=== PATIENT | female | born 1965 | race Caucasian/White ===

== ENCOUNTER 2022-04-02 09:03 | Observation (INO) ==
--- NOTE | 2022-03-24 13:36 | Anesthesiology Consultation ---
Date of Service March 24, 2022 Assessment & Plan (1) Encounter for pre-operative examination: - check urine test STAT am DOS. - COVID screening: Per director of undergraduate admissions on 03/24/2022: Travel screen negative, no known COVID-19 positive contacts or current COVID-19 related symptoms in past 2 weeks. To surgeon's discretion if preop COVID testing needed. Chart Review Chart Review: Acceptable Risk for Surgery and Patient NOT seen in Pre Admission Testing History Surgery Operation Date: 04/02/22 10:50 Proposed Procedures p Bilateral Breast Reduction and Excision Skin Tag Left Axilla - Gabby Wu MD Height/Weight Height: 5 ft 4 in Weight: 66.224 kg Allergies Allergy/AdvReac Type Severity Reaction Status Date / Time No Known Allergies Allergy Verified 03/24/22 11:33 Medications Home Medications Medication Instructions Recorded Confirmed Last Taken baclofen 5 mg tablet 5 mg PO DAILY PRN Muscle Pain 03/18/22 03/24/22 Unknown gabapentin 100 mg capsule 100 mg PO TID 03/18/22 03/24/22 Unknown meloxicam 7.5 mg tablet (Mobic) 7.5 mg PO QAM 03/18/22 03/24/22 Unknown oxycodone-acetaminophen 5 mg-325 1 tab PO Q4H PRN pain #18 tabs 03/18/22 03/24/22 Unknown mg tablet (Endocet) acetaminophen 325 mg tablet 325 mg PO QID PRN Pain 03/24/22 03/24/22 Unknown (Tylenol) Past Medical History Medical History Arthritis Chronic back pain Past Family History Family History Other Breast cancer COPD (chronic obstructive pulmonary disease) Past Surgical History Surgical History History of section X1 History of colonoscopy History of tooth extraction No pertinent past surgical history Social History Smoking Status: Never smoker Do You Dip or Chew Tobacco: No Hx Alcohol Use: Yes Alcohol type: wine alcohol intake frequency: holidays/special occasions only Hx Substance Use: No substance use type: does not use Lab Results Anesthesia Preop Results Results Anesthesia Widget: WBC 6.39 K/ul (4.8-10.8) 03/18/22 Hgb 12.2 g/dl (12.0-16.0) 03/18/22 Hct 36.4 % (34.1-44.9) 03/18/22 Plt 361 K/uL (130-400) 03/18/22 Na 136 mmol/L (136-145) 03/18/22 K 3.8 mmol/L (3.5-5.1) 03/18/22 Cl 102 mmol/L (98-107) 03/18/22 CO2 28 mmol/L (21-32) 03/18/22 BUN 14 mg/dl (6-23) 03/18/22 Creat 0.73 mg/dl (0.6-1.2) 03/18/22 Glucose Level 91 mg/dl (70-99(Fasting)) 03/18/22 PT 10.7 Seconds (9.0-12.0) 03/18/22 INR 1.0 (0.9-1.1) 03/18/22 Testing Electrocardiogram Date: 03/18/22 NSR, rate 80 bpm
[~2022-04-02 09:03] MED LIST: LR 500ML BOLUS, THEN 15ML/HR IV SCH; ceFAZolin 2000MG 2,000 MG/15 ML SYR IV SCH
--- NOTE | 2022-04-02 10:30 | History & Physical Bridge Note ---
Date of Service April 02, 2022 History & Physical Bridge Note I have examined the patient, reviewed the History & Physical and in the interval since the performance of the History & Physical I have noted the following changes of clinical significance: no changes noted
[2022-04-02] MEDS ORDERED: ACETAMINOPHEN 1000 MG/100 ML IV IV ONE (11:02)
[2022-04-02] MEDS ORDERED: EPINEPHrine INJ 1 MG/ML AMP ONE (11:03)
[2022-04-02] MEDS ORDERED: LIDOCAINE 1% LOCAL 20 ML VIAL ONE (11:04)
[2022-04-02] MEDS ORDERED: BUPIVACAINE 0.25% 30 ML VIAL ONE (11:04)
[2022-04-02] MEDS ORDERED: LIDOCAINE 1%/EPINEPHRINE 1:100,000 50 ML VIAL ONE (11:04)
[2022-04-02] MEDS ORDERED: LIDOCAINE 2% MPF LOCAL 5 ML VIAL INFIL ONE (11:06)
[2022-04-02] MEDS ORDERED: ROCURONIUM BROMIDE 10 MG/ML 5 ML VIAL IV ONE ×7 (11:06→14:20)
[2022-04-02] MEDS ORDERED: PROPOFOL IV EMULSION 10 MG/ML 20 ML VIAL IV ONE (11:06)
[2022-04-02] MEDS ORDERED: DEXAMETHASONE SOD INJ 4 MG/ML VIAL ONE ×2 (11:07)
[2022-04-02] MEDS ORDERED: ONDANSETRON INJ 2 MG/ML 2 ML VIAL ONE ×2 (11:07)
[2022-04-02] MEDS ORDERED: fentaNYL citrate 100 MCG/2 ML VIAL ONE (11:08)
[2022-04-02] MEDS ORDERED: MIDAZOLAM HCL 1 MG/ML 2ML VIAL ONE (11:08)
[2022-04-02] MEDS ORDERED: TISSEEL FIBRIN SEALANT 4ML TOP ONE ×2 (12:25→12:26)
[2022-04-02] MEDS ORDERED: fentaNYL citrate 100 MCG/2 ML VIAL IV PRN (12:58)
[2022-04-02] MEDS ORDERED: ePHEDrine sulfate 50 MG/ML AMP IV PRN (12:58)
[2022-04-02] MEDS ORDERED: ONDANSETRON INJ 2 MG/ML 2 ML VIAL IV PRN ×2 (12:58→16:15)
[2022-04-02] MEDS ORDERED: ATROPINE SULFATE 0.1 MG/ML 10ML SYR IV PRN (12:58)
[2022-04-02] MEDS ORDERED: HYDROmorphone INJ 1 MG/ML SYRINGE ONE (13:13)
[2022-04-02] MEDS ORDERED: GLYCOPYRROLATE 0.2 MG/ML VIAL ONE (14:27)
--- NOTE | 2022-04-02 14:48 | Post Operative Brief Note ---
PG Immediate Post Op with CF Date of Surgery April 02, 2022 Pre & Post Diagnosis Operation Date: 04/02/22 10:50 Pre-Op Diagnosis: Macromastia Post-Op Diagnosis: Macromastia I identified the patient and participated in the time-out.: Yes Procedure Operation Date: 04/02/22 10:50 Actual Procedures p Bilateral Breast Reduction and Excision Skin Tag Left Axilla(Bilateral) - Gabby Wu MD Surgeon Gabby Wu MD Supply Chain Procurement Manager Rashida Crawford PA-C Estimated Blood Loss 50 Findings Consistent with Post-Op Diagnosis Specimens Specimen Description: A. Right Breast Tissue, 306grams B. Left Breast Tissue, 408 grams Drains [place] Drain
--- NOTE | 2022-04-02 14:56 | Operative Report ---
PG Post Operative Report Pre & Post Diagnosis Operation Date: 04/02/22 10:50 Pre-Op Diagnosis: Macromastia Post-Op Diagnosis: Macromastia I identified the patient and participated in the time-out.: Yes Procedure Operation Date: 04/02/22 10:50 Actual Procedures p Bilateral Breast Reduction and Excision Skin Tag Left Axilla(Bilateral) - Gabby Wu MD Surgeon Gabby Wu MD Senior Bioinformatics Specialist Rashida Crawford PA-C Estimated Blood Loss 50 Findings Consistent with Post-Op Diagnosis Bilateral NACs pink and viable at the close of the case Specimens left breast tissue 408 grams, right breast tissue 306 grams Drains JPx2 Anesthesia Type General Indications Bilateral shoulder, neck pain, macromastia Description of Procedure The risks, benefits, and alternatives of the procedure were explained to the patient who agreed and signed consent. She was identified and marked in the preoperative holding area. She was brought to the operating room where she was positioned supine and placed under general anesthesia without incident. Surgical site was prepped and draped sterilely. A time-out procedure was performed. I began with the left side. Markings were reassessed and a 7 cm pedicle was marked. 1% lidocaine with epinephrine was used to anesthetize the planned incisions. A 38 mm cookie cutter was used to circumscribe the nipple-areolar complex. The previously marked 7 cm pedicle was incised using a 15 blade scalpel and deepithelialized. I began with the medial dissection of the pedicle using electrocautery. Cautery was used to incise through dermis and breast parenchyma down to the chest wall, taking care not to undermine the pedicle during dissection. A similar procedure was undertaken on the lateral aspect of the pedicle again taking care not to undermine. Lastly, the pedicle was dissected out superiorly using electrocautery and this was carried down to the chest wall as well. I then began with excision of the medial breast tissue followed by lateral aspect of the breast tissue and surrounding keyhole incision. A 15 blade scalpel was used to make the inframammary fold incision and electrocautery was used to deepen the incision through dermis and breast parenchyma. Dissection was then carried superiorly to the level of the superior incision. Superior incision was then incised using a 15 blade scalpel and again dissected using electrocautery. This was undertaken laterally and then around the keyhole portion of the incision. Care was taken to leave some fat on the lateral pectoralis fascia in order to protect the T4 intercostal nerve. Hemostasis was achieved with electrocautery. The specimen was passed off in its entirety for weighing. Additional resection was undertaken from the superior flap in order to facilitate closure of the br east and to provide the best shape. The total resection weight of the larger left breast was 408 grams. The wound was irrigated with saline and hemostasis was achieved with electrocautery. 0.25% Marcaine plain was used to anesthetize the incisions as well as the pectoralis fascia. A 15 [place] Jonathan drain was brought out through a separate stab incision. Tisseel was sprayed in the wound bed to decrease risk of hematoma or seroma. The nipple-areolar complex was brought into the keyhole using 2-0 Vicryl deep dermal suture. The wound was closed first in a lateral to mid breast direction and then medial to mid breast direction using 2-0 Vicryl deep dermal sutures. Vertical limb was also approximated using 2-0 Vicryl deep dermals and the nipple-areolar complex was inset using 2-0 Vicryl deep dermal sutures. Next, the superficial dermal layer was closed using 2-0 PDO running Quill suture along the inframammary fold and 3-0 PDS interrupted dermal sutures along the vertical limb and nipple- areolar complex. Lastly 3-0 Monocryl running subcuticular suture was placed. A similar procedure was undertaken on the smaller right side with maximal excision weight of 306 grams. Breasts were symmetric and nipple-areolar complexes were viable bilaterally following wound closure. Dermabond Prineo was applied along the inframammary fold and vertical limb and Dermabond was placed around the nipple-areolar complex. Dry dressings and a surgical bra were placed. The patient was awakened and transferred to recovery room in satisfactory condition. Rashida Crawford PA-C was present and scrubbed throughout the procedure and was instrumental in providing retraction during dissection of the pedicle and assisting in wound closure. I attest to the content of the Intraoperative Record and any orders documented therein. Any exceptions are noted below.
--- NOTE | 2022-04-02 15:36 | Anesthesiology Progress Note ---
Date of Service April 02, 2022 Anesthesia Post Procedure Vital Signs Vital Signs: Temp Pulse Pulse Resp BP Pulse Ox O2 Del Method 04/02/22 15:20 85 14 111/72 100 Oxymask 04/02/22 15:30 87 20 103/74 99 Room Air 04/02/22 15:10 98 H 17 114/71 100 Oxymask 04/02/22 15:02 36.1 C L 99 H 16 107/67 100 Oxymask 04/02/22 09:30 36.8 C 93 H 18 139/79 98 Room Air O2 Flow Rate 04/02/22 15:20 6 04/02/22 15:30 04/02/22 15:10 6 04/02/22 15:02 6 04/02/22 09:30 Transfer of Care Handoff Completed per policy Notes Mental Status: alert / awake / arousable Patient Amnestic to Procedure: Yes Nausea / Vomiting: adequately controlled Pain: adequately controlled Airway Patency, RR, SpO2: stable & adequate BP & HR: stable & adequate Hydration State: stable & adequate Anesthetic Complications: no major complications apparent
[2022-04-02] MEDS ORDERED: diphenhydrAMINE 50 MG/ML VIAL IV PRN (16:15)
[2022-04-02] MEDS ORDERED: oxyCODONE/ACETAMINOPHEN 5mg/325mg TAB PO PRN (16:15)
[2022-04-02] MEDS ORDERED: MoRPHine SULFATE 2 MG/ML CARP IV PRN (16:15)
[2022-04-02] MEDS ORDERED: PROMETHAZINE HCL 12.5 MG in SODIUM CHLORIDE 0.9% 50 ML IV PRN (16:15)
[2022-04-02] MEDS ORDERED: diphenhydrAMINE Capsule 25 MG CAP PO PRN (16:15)
[2022-04-02] MEDS ORDERED: MoRPHine SULFATE 4 MG/ML 1 ML CARP\\VIAL IV PRN (16:15)
[2022-04-02] MEDS ORDERED: LORazepam 0.5 MG TAB PO PRN (16:15)
[2022-04-02] MEDS: D5W AND 1/2NSS + 20MEQ KCL 20 MEQ/1,000 ML BAG IV SCH (17:49)
[2022-04-02] MEDS: ACETAMINOPHEN 325 MG TAB PO PRN (18:27)
[2022-04-02] MEDS: ceFAZolin 2000MG 2,000 MG/15 ML SYR IV SCH (20:37)
[2022-04-02] MEDS: oxyCODONE/ACETAMINOPHEN 5mg/325mg TAB PO PRN (20:37)
[2022-04-03] MEDS: ceFAZolin 2000MG 2,000 MG/15 ML SYR IV SCH (02:30)
[2022-04-03] MEDS: D5W AND 1/2NSS + 20MEQ KCL 20 MEQ/1,000 ML BAG IV SCH (06:11)
[2022-04-03] MEDS: ACETAMINOPHEN 325 MG TAB PO PRN (08:23)
[2022-04-03] MEDS ORDERED: MULTIVITAMIN TAB PO SCH (09:00)
--- NOTE | 2022-04-03 09:06 | Surgery Progress Note ---
Date of Service April 03, 2022 Assessment & Plan (1) Status post breast reduction: Plan POD#1 s/p bilateral breast reduction. 1. doing well. drains removed 2. discharge home 3. shower tomorrow Admission and Anticipated Discharge Date Admission Date: April 02, 2022 Subjective Nina is resting in bed. Had nausea overnight, feels better since 2am. Pain is well controlled. No issues voiding. Physical Exam Physical Exam: drains with scant output. removed. incisions CDI, nipples pink, viable Results & Data ([facility]) Vital Signs (Past 12 Hours) Vital Signs Temp Pulse Resp BP Pulse Ox O2 Del Method 04/03/22 08:32 Room Air 04/03/22 07:58 36.7 C 86 18 116/71 96 Room Air 04/03/22 03:30 36.7 C 77 16 98/61 L 97 Room Air 04/02/22 22:48 36.7 C 91 H 18 100/61 95 Room Air PG Care Time/CCT Total # of Minutes Spent Total Time Spent with Patient: Total time spent is greater than 50% in coordination of care (as documented) at patient's floor/unit and/or counseling patient: Coding Level of Care Code None Diagnoses Status post breast reduction Z98.890
[2022-04-03] MEDS: oxyCODONE/ACETAMINOPHEN 5mg/325mg TAB PO PRN (09:48)
--- NOTE | 2022-04-04 10:59 | Discharge Summary ---
Date of Service April 04, 2022 Admission HPI Per Admitting Provider See admission H&P Lisa presents today for discussion of possible breast reduction surgery. She has been thinking about this for quite some time, noting her daughter had suggested it to her. She presently wears a 36 double D bra, has been the size of the last 5 to 7 years. Has been professionally fitted and does wear support bra. Experiences neck pain, headaches, shoulder pain, upper and lower back pain, groo ving and divots in her shoulders from bra straps, poor posture, low self- esteem. She has tried many modalities to treat pain including a TENS unit, radiofrequency ablation performed at the pain clinic, Mobic, cortisone shots, muscle relaxers for at least the last 18 years. She has also tried exercises to reduce the size of her breasts, has tried to lose weight and cut out sugar to no avail. She has been seen by physical therapy which helps relieve symptoms somewhat. Has gone to chiropractor for over a year, noted only short-term improvement. Has been seen by [facility] for 2 years, which really only helps in the short-term. She has tried Mobic, Robaxin, baclofen. She does try to exercise regularly, finds difficulty in wearing certain clothing, exercising, running. Is been about 10 years since her last mammogram, states she is due for one but had to cancel due to Covid. She does have an order to have mammogram performed. She has had an abnormal mammogram before necessitating biopsy, which was noted to be benign. There is a family history of breast cancer. She would like to be a C cup if possible. Hoping to have surgery sometime this fall if she decides to proceed. Admission Exam Per Admitting Provider Measurements R(cm) L(cm) Sternal notch to nipple 28 31 [place] 27 30 Nipple to inframammary fold 10 11 Ptosis 2 2 Base Diameter left breast larger than the right Principal Diagnosis macromastia Discharge Exam drains with scant output. removed. incisions CDI, nipples pink, viable Discharge Data Allergies Allergy/AdvReac Type Severity Reaction Status Date / Time No Known Allergies Allergy Verified 04/02/22 09:28 Procedures Performed Operation Date: 04/02/22 10:50 Actual Procedures p Bilateral Breast Reduction and Excision Skin Tag Left Axilla(Bilateral) - Gabby Wu MD Hospital Course (1) Status post breast reduction: Patient presented to [facility] with history of symptomatic macromastia. She was taken to the OR and underwent bilateral breast reduction. There were no intraoperative complications. She was taken to recovery and transferred to med/surg for observation. On POD#1, she was feeling well. She was tolerating a regular diet and ambulating. On exam, her vitals were stable. Her incisions were CDI and nipples viable. Her drains were removed. She was discharged home. Total Time Total Time Spent Total Time Spent (In Minutes): 15 Total Time Includes: Examination of the Patient, Medication Reconciliation and Communication With Other Providers Discharge Plan Discharge Items Patient Disposition: Home - Self-Care Reason For Visit: Macromastia, Skin Tag Discharge Diagnosis: s/p bilateral breast reduction Activity: As commented below Non-emergency contact: Surgeon Call non-emergency contact if: you have any medication questions, your pain is worsening, you have a fever, your wound has increased redness and your wound has increased drainage Follow-up/Referrals: Rashida Crawford PA-C [Physician Manager Critical Care Unit] - 04/16/22 9:00 am Nichelle Smith PA-C [Primary Care Provider] - Diet: Regular Addtl Attending Provider Instructions: ACTIVITY RECOMMENDATIONS: __Normal activities _x_No bending, lifting or straining. Keep arms at shoulder height or below. __No driving _x_Driving allowed when you are off pain medications _x_Walking permitted __You should have help at home for ___ days DRESSINGS: __No dressings required __Keep dressings dry/in place until first office visit _x_Remove dressings _TOMORROW (Thursday)__ and leave dressings off __Apply ice ___ days __Remove dressings and reapply garment __Apply antibiotic ointment (Bacitracin, Neosporin, etc) to wounds 3-4 times/day for 10 days BATHING: _x_Keep dressings dry _x_Sponge bathing permitted _x_Showering permitted TOMORROW (THURSDAY) _x_No swimming, hot tubs or soaking in a tub MEDICATIONS: Resume previous medications unless instructed otherwise by your surgeon. _x_Do not use aspirin, Motrin, Advil or Ibuprofen as these may promote bleeding. Please use Tylenol. _x_Prescription(s) provided: pain medication prescribed at your last office manny Pace sent today. OTHER INSTRUCTIONS: __Record drain output 2-3 times per day SPECIAL CARE INSTRUCTIONS: * It is normal to have a mild fever after surgery. If your temperature is higher than 101.5 degrees F, please call the office at [phone]. * Constipation is a typical side effect of pain medication. An over-the- counter stool softener will help relieve this. * Leaking around surgical drains may occur and should not cause concern. Sometimes these drains become clogged. If this happens, remove the bulb and milk the clot out of the tube, then replace the bulb. * Drainage from wounds after liposuction is normal and should be expected. Garments will become soiled. You should protect furniture and bedding. This drainage should mostly subside within 2-3 days. Leave garments in place unless instructed to remove them. * If you have unusual drainage from a wound or are concerned you have an infection or have any questions or concerns, please call the office at [phone]. FOLLOW UP VISIT: If not already scheduled, please call the office, , when you return home after surgery to schedule an appointment to be seen in __14_ days. Pending Studies at Discharge: Yes Stand-Alone Forms: [facility] Sm[facility] Cess[facility] Medications and DC Order Prescriptions: New ondansetron 4 mg tablet,disintegrating 4 mg PO Q6H Qty: 20 0RF Continued gabapentin 100 mg capsule 100 mg PO TID oxycodone-acetaminophen [Endocet] 5-325 mg tablet 1 tab PO Q4H PRN (Reason: pain) Qty: 18 0RF Rx Instructions: initial therapy Dr. Wu [id number] acetaminophen [Tylenol] 325 mg Tablet 325 mg PO QID PRN (Reason: Pain) Discontinued meloxicam [Mobic] 7.5 mg tablet 7.5 mg PO QAM baclofen 5 mg tablet 5 mg PO DAILY PRN (Reason: Muscle Pain) Discharge Orders: Discharge Order (Routine); Ordered 04/03/22 Ordered By: Rashida Mccord/Other Patient Handouts: Breast Reduction Surgery Admission Data Admit Date/Time: 04/02/22 15:01 Attending Provider: Gabby Wu Admit Provider: Gabby Wu Primary Care Provider: Nichelle Smith Other Interventions: Discharge Summary Assessment (RN) Last Done: 04/03/22 09:53 Coding Level of Care Code 45341 OBS Care - Discharge Diagnoses Status post breast reduction Z98.890
== END 2022-04-03 11:33 | disposition home or self-care (01) ==
LOC: ASU 09:03 → 3E 09:03